=== PATIENT | male | born 1995 | race Caucasian/White ===

== ENCOUNTER 2025-05-09 14:04 | Emergency (ER) | payer SELFPAY ==
--- NOTE | ~2025-05-09 | XR_ITS ---
EXAMINATION: XR RIBS 3 VIEWS MINIMUM WITH CHEST RIGHT HISTORY: pain, injury COMPARISON: There are no prior studies available for comparison. FINDINGS: A single PA view of the chest and 4 views of the right ribs are submitted. The lungs are expanded and clear. There is no pleural effusion, pneumothorax, or pulmonary vascular congestion. The heart is normal in size. The bones are intact. No right rib fracture is seen. XR/XR ribs RT min 3V w CXR1V IMPRESSION: Clear lungs. No evidence of fracture of the right ribs. Electronically signed by: Shun Rhodes MD 05/09/2025 02:55 PM EST
--- NOTE | 2025-05-09 14:16 | ED_ITS ---
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 His pain started yesterday. His pain is not reproducible, it is not significantly worse with movement. He denies any trauma. 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 His pain is worse when he takes a deep breath. He denies any coughing, shortness of breath pain Denies any nausea vomiting, abdominal pain, diarrhea. He also denies any burning with urination, urinary frequency or blood in the urine. He has not tried any medication to alleviate symptoms Denies any history of kidney stone Related Data Previous Rx's ?Medication ?Instructions ?Recorded cyclobenzaprine 10 mg tablet 10 mg PO TID PRN muscle s pasm #20 05/09/25 tabs ibuprofen 600 mg tablet 600 mg PO Q6H PRN pain #20 t abs 05/09/25 Allergies Allergy/AdvReac Type Severity Reaction Status Date / Time No Known Allergies Allergy Verified 05/09/25 14:22 Review of Systems 2 Constitutional: Constitutional: Denies chills, Denies fever(s) and Denies headache(s) Eyes: Eyes: Denies blurry vision ENT: Denies vertigo, Denies dizziness, Denies dry mouth and Denies headache(s) Cardiovascular: Cardiovascular: Denies chest pain and Denies dyspnea on exertion Respiratory: Respiratory: Denies cough and Denies dyspnea on exertion Gastrointestinal: Gastrointestinal: Denies abdominal pain, Denies nausea and Denies vomiting Musculoskeletal: Musculoskeletal: Reports back pain, Denies arthralgias, Denies joint swelling and Denies limited range of motion Integumentary/Breasts: Skin/Breast: Denies rash Neurologic: Denies vertigo, Denies dizziness and Denies headache(s) Psychiatric: Psychiatric: Denies anxiety PMFSH Social History Social History Smoked in Last 30 Days: No Advance Directives: No Advance Directives Information Provided: No Do you have a plan to hurt others: No Plan Physical Exam ED Vital Signs: Vital Signs - 24 hr 05/09/25 14:19 05/09/25 16:53 05/09/25 20:52 Temperature 97.3 F 98.1 F 97.8 F Pulse Rate 80 74 69 Respiratory Rate 18 16 16 Blood Pressure 147/94 H 146/114 H 147/95 H Pulse Oximetry 97 98 Oxygen Delivery Method Room Air Room Air Room Air BMI result Body Mass Index 41.0 Const General: healthy appearing, comfortable, no acute distress, alert and awake Nutritional Appearance: well nourished Orientation/consciousness: patient oriented x3 HENMT Head: Yes normocephalic and Yes atraumatic Eyes Eyelids: Yes eyelids normal Conjunctivae: conjunctivae normal Sclerae: sclerae normal Corneas: corneas normal Pupils: Equal, round and reactive pupils present EOM: EOMs intact bilaterally Neck Neck: Yes full ROM Chest Other: There is tenderness in the right anterior axillary line at the level of the 10th through 12th ribs. No crepitus noted. Chest palpation & inspection: normal inspection of the chest Resp Effort & Inspection: normal respiratory effort, able to speak in complete sentences, no audible wheezes and not labored Auscultation: clear to auscultation bilaterally Cardio Rate: regular rate Rhythm: regular rhythm GI Inspection: No distended Palpation (GI): Soft to palpation, not firm, nontender, no guarding and not rigid Back/Spine/Pelvis Other: No thoracic, lumbar spinal or paraspinous tenderness on exam is No rebound or guarding. Negative straight leg raise bilaterally. Skin General skin exam: elasticity normal Neuro General: patient oriented x3 Cranial nerves: Yes Equal, round and reactive pupils present and Yes Bilaterally intact EOM present Cognition (Neuro): normal cognition Extrem Other: Moving all extremities well without any obvious deformities Course Course Course Narrative: Rapid medical examination performed in triage by Afsaneh Emery PA-C: Patient is a 29 year old assigned male at presenting to the emergency department with pain under his right rib cage. Patient states that he was lifting heavy things yesterday and felt pain in his right rib cage. Detailed physical exam and review of systems are deferred to the primary counselor. Imaging ordered. Patient placed back in the waiting room pending room availability and results. Medications Administered Discontinued Medications Generic Name Dose Route Start Last Admin Trade Name Freq PRN Reason Stop Dose Admin Ibuprofen 600 mg 05/09/25 18:34 05/09/25 18:45 Ibuprofen 600 Mg Tablet PO 05/09/25 18:35 600 mg ONCE ONE Administration Medical Decision Making Medical Decision Making [facility] Narrative: 29-year-old male presents for evaluation of atraumatic right flank pain. He denies any associated symptoms with the exception of pain with deep inspiration. He has a quite active and healthy young male. He denies any coughing or shortness of breath, he denies any abdominal pain, nausea vomiting, diarrhea. Denies any symptoms. His pain is not significantly reproducible on exam. 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 However given in his pain is not reproducible I feel is appropriate to check basic labs including LFTs renal function and get a urinalysis to evaluate for hematuria. A rib x-ray with a PA chest was ordered does not show any fracture or pneumothorax, no pneumonia. The patient is PERC negative, I have a low suspicion for PE Differential Diagnosis Differential Diagnoses: The differential diagnosis associated with the presentation includes Muscle strain Contusion Chest wall pain Bronchitis PE Cholelithiasis Acute cholecystitis Obstructive uropathy Acute appendicitis less likely Lab Data 05/09/25 19:20 05/09/25 19:20 Labs: Lab Results 05/09/25 Range/Units 19:20 WBC 6.5 (4.8-10.8) X10*3/uL RBC 5.27 (4.60-5.80) X10*6/uL Hgb 14.9 (14.0-18.0) g/dl Hct 43.4 (42.0-52.0) % MCV 82.4 (80.0-98.0) fL MCH 28.3 (27.0-33.0) pg MCHC 34.3 (31.0-36.0) g/dl RDW 13.4 (11.0-16.0) % Plt Count 204 (160-400) X10*3/uL MPV 11.0 (9.4-12.4) fL Immature Gran % (Auto) 0.3 (0.0-0.4) % Neut % (Auto) 56.9 (45-73) % Lymph % (Auto) 30.2 (20-40) % [place] % (Auto) 8.9 (2-11) % Eos % (Auto) 3.1 (0-4) % Baso % (Auto) 0.6 (0-2) % Lymph # (Auto) 2.0 (1.2-4.9) X10*3/uL [place] # (Auto) 0.6 (0.1-1.2) X10*3/uL Eos # (Auto) 0.2 (0.0-0.4) X10*3/uL Baso # (Auto) 0.0 (0.0-0.2) X10*3/uL Abs Immat Gran (auto) 0.02 (0.00-0.03) X10*3/uL Absolute Neuts (auto) 3.7 (2.0-8.3) x10*3/uL Absolute Nucleated RBC 0.000 (0.0-0.012) X10*3/uL Nucleated RBC % (auto) 0.0 (0.0-0.2) /100WBC Sodium 135 (135-145) mmol/L Potassium 4.2 (3.3-5.1) mmol/L Chloride 101 (96-108) mmol/L Carbon Dioxide 26 (22-29) mmol/L Anion Gap 12 (12-20) BUN 12 (9-16) mg/dL Creatinine 0.77 (0.5-1.4) mg/dL Estim Creat Clear Calc 137.6 Estimated GFR > 60 Random Glucose 92 (60-115) mg/dL Calcium 9.0 (8.4-10.2) mg/dL Total Bilirubin 0.7 (0.0-1.0) mg/dL AST 58 H (5-37) U/L ALT 69 H (0-40) U/L Alkaline Phosphatase 101 (39-117) U/L Total Creatine Kinase 292 H (38-174) U/L Total Protein 8.0 (6.5-8.0) g/dL Albumin 4.7 (3.5-5.0) g/dL Lipase 19 (8-78) U/L Radiology Impression Discussion of test interpretation with radiology: I have reviewed the radiologist's reading. Radiologist Impression: FINDINGS: A single PA view of the chest and 4 views of the right ribs are submitted. The lungs are expanded and clear. There is no pleural effusion, pneumothorax, or pulmonary vascular congestion. The heart is normal in size. The bones are intact. No right rib fracture is seen. XR/XR ribs RT min 3V w CXR1V IMPRESSION: Clear lungs. No evidence of fracture of the right ribs. Electronically signed by: Shun Rhodes MD 05/09/2025 02:55 PM [facility] Discharge Plan Discharge Clinical Impression: Acute right flank pain Patient Disposition: Home, Self-Care Instructions: Muscle Strain (ED) Additional Instructions: Your blood work today was reassuring. I think your symptoms are most consistent with a muscle strain. Use naproxen needed for pain. You may use cyclobenzaprine as needed for muscle spasms, this will make you drowsy in his good to use before bedtime. Follow up with your primary doctor, return for new or worsening symptoms Prescriptions: New cyclobenzaprine 10 mg tablet 10 mg PO TID PRN (Reason: muscle spasm) Qty: 20 0RF ibuprofen 600 mg tablet 600 mg PO Q6H PRN (Reason: pain) Qty: 20 0RF Stand Alone Forms: Work/School Release Print Language: Guyanese
[2025-05-09 14:19] VITALS: BP 147/94; PULSE 80; RESP 18; TEMP 36.3; O2SAT 97; BMI 41.0
[2025-05-09 16:53] VITALS: BP 146/114; PULSE 74; RESP 16; TEMP 36.7
--- NOTE | 2025-05-09 19:16 | PC.NURSE ---
this RN assumed care of this pt @1900, pt noted to be laying semi dunn's on the hospital stretcher, using his cell phone, appears to be in no apparent / respiratory distress at this time
[2025-05-09 19:25] LABS: MANUAL DIFF FLAG NO
[2025-05-09 19:40] LABS: Alanine Aminotransferase 69 U/L (0-40); Albumin Level 4.7 g/dL (3.5-5.0); Alkaline Phosphatase 101 U/L (39-117); Anion Gap 12 (12-20); Aspartate Amino Transferase 58 U/L (5-37); Blood Urea Nitrogen 12 mg/dL (9-16); Calcium 9.0 mg/dL (8.4-10.2); Carbon Dioxide 26 mmol/L (22-29); Chloride 101 mmol/L (96-108); Creatinine Clr Calc Pharmacy 137.6; Estimated Glomerular Filt Rate > 60; Lipase 19 U/L (8-78); Potassium 4.2 mmol/L (3.3-5.1); Sodium 135 mmol/L (135-145); Total Protein 8.0 g/dL (6.5-8.0)
[2025-05-09 19:49] LABS: Hematocrit 43.4 % (42.0-52.0); Hemoglobin 14.9 g/dl (14.0-18.0); Imm Gran Abs Auto 0.02 X10*3/uL (0.00-0.03); Imm Gran Pct Auto 0.3 % (0.0-0.4); Lymphocytes Absolute Auto 2.0 X10*3/uL (1.2-4.9); Mean Corpuscular HGB Conc 34.3 g/dl (31.0-36.0); Mean Corpuscular Hemoglobin 28.3 pg (27.0-33.0); Mean Corpuscular Volume 82.4 fL (80.0-98.0); NRBC Abs Auto 0.000 X10*3/uL (0.0-0.012); NRBC Pct Auto 0.0 /100WBC (0.0-0.2); Platelet Count 204 X10*3/uL (160-400); Red Blood Count 5.27 X10*6/uL (4.60-5.80); White Blood Count 6.5 X10*3/uL (4.8-10.8)
[2025-05-09 20:52] VITALS: BP 147/95; PULSE 69; RESP 16; TEMP 36.6; O2SAT 98
[2025-05-09 21:54] VITALS: BP 143/99; PULSE 70; RESP 16; TEMP 36.6; O2SAT 97
== END 2025-05-09 21:55 | disposition home or self-care (01) ==
PROVIDERS: Physician Assistant; Emergency Provider Emergency Medicine
DX: R10.A1 Flank pain, right side (principal); R07.89 Other chest pain; R07.1 Chest pain on breathing
CPT/HCPCS: 36415; 71101; 80053; 82550; 83690; 85025; 99283; 99284

== ENCOUNTER → 2025-05-09 14:24 | Outpatient (BNV) | payer SELFPAY | PROVIDERS: Visit Provider Radiology Diagnostic Radiology | DX: R07.89 Other chest pain (principal) | CPT/HCPCS: 71101 ==